=== PATIENT | male | born 1940 | race Caucasian/White ===

== ENCOUNTER → 2016-12-11 | Outpatient (CLI) | payer MEDICARE ==
--- NOTE | 2016-12-11 10:30 | PCVCIMAG ---
APPROVED REPORT Patient Location: Out-Patient Indications Stenosis Risk Factors Hypertension: Hyperlipidemia Doppler Spectral Velocity Analysis PSV / EDVPSV / EDV ECA (R) 135 / 9 cm/sECA (L) 109 / 7 cm/s dICA (R) 57 / 19 cm/sdICA (L) 61 / 19 cm/s Damion (R) 79 / 15 cm/smICA (L) 82 / 30 cm/s pICA (R) 48 / 14 cm/spICA (L) 50 / 13 cm/s Bulb (R) 48 / 10 cm/sBulb (L) 55 / 12 cm/s dCCA (R) 68 / 10 cm/sdCCA (L) 60 / 12 cm/s mCCA (R) 85 / 13 cm/smCCA (L) 85 / 13 cm/s Vert (R) 46 / 7 cm/sVert (L) 44 / 9 cm/s ICA/CCA 1.16ICA/CCA 1.37 Basic Measurements Blood Pressure: Pulses: Right Left RightLeft Brachial(Sitting) 132/05mcYx895/76mmHgTemporal Real Time B-Mode Imaging Vert. (R)AntegradeVert. (L)Antegrade Findings The right carotid bulb has mild plaque. The right proximal internal carotid artery shows no significant stenosis. The right common carotid artery shows no significant stenosis. The right external carotid artery shows no significant stenosis. The left carotid bulb has moderate calcified plaque. The left proximal internal carotid artery shows <40% stenosis. The left common carotid artery shows no significant stenosis. The left external carotid artery shows no significant stenosis. Conclusion 1. Right internal carotid artery plaquing 2. Left internal carotid artery stenosis (<40%) 3. Antegrade vertebral flow
--- NOTE | 2016-12-11 12:59 | PCVCIMAG ---
APPROVED REPORT Exam: Stress Echocardiogram Indication: CAD s/p CABG, Hypertension, Hyperlipidemia Patient Location: Echo lab Stress Nurse: Adriana Tate RN Status: routine HR: 85 bpm Rhythm: NSR Medical History Medical History: CAD s/p CABG Cardiac Risk Factors: HTN, Hyperlipidemia,CAD Previous Cardiac Procedures: CABG Pretest Chest Pain Characteristics: No chest pain Exercise History: Physically active Procedure The patient underwent an Exercise Stress Test using the William Protocol. Blood pressure, heart rate, and EKG were monitored. An Echocardiogram was performed by tube test technician in four stages in quad fashion. At peak stress, four selected images were obtained and placed side by side with resting images for comparison. Stress Test Details HR Resting HR: 85 bpmMax Heart Rate (APMHR): 144 bpm Max HR Achieved: 160 bpmTarget HR (85% APMHR): 122 bpm % of APMHR: 111 Recovery HR: 93 bpm HR response to stress: Normal HR response to stress BP Resting BP: 148/74 mmHg Max BP: 198/78 mmHg Recovery BP: 152/80 mmHg ECG Resting ECG: Sinus Rhythm Stress ECG: Sinus Rhythm, nonspecific ST-T abnormalities ST Change: Upsloping ST depression Maximum ST Deviation: 2.2 mm Arrhythmia: None Recovery ECG: Sinus Rhythm, NSSTT changes Recovery ST Change: Upsloping ST depression Recovery Arrhythmia: None Clinical Reason for Termination: Maximal effort, Dyspnea Stress Symptoms: None Exercise duration: 7 min 01 sec Highest Stage Achieved: Stage 3: 3.4 mph at 14% grade. Exercise capacity: 10.1 METs Overall Exercise Capacity for Age: Average Angina Score: None Stress ECG Conclusion The patient exercised according to the WILLIAM protocol for 7:01 mins, achieving a work level of Max. METS: 10.1 The resting heart rate of 78 bpm maggie to a maximal heart rate of 160 bpm. This value represents 111 The resting blood pressure of 148/74 mmHg, maggie to a maximum blood pressure of 198/80 The exercise test was stopped due to fatigueand dyspnea. Sullivan Treadmill Score is -4.0 which is Moderate risk. Pre-Stress Echo The resting Echocardiogram showed normal left ventricular contractility with an estimated Ejection Fraction of about 55%. Normal wall motion in all segments on baseline images. Post-Stress Echo The stress Echocardiogram showed normal left ventricular contractility with an estimated Ejection Fraction of about 70%. Normal augmentation of wall motion in all segments on post stress images. Conclusion Clinical Response: Non-ischemic Exercise Capacity: Average Stress ECG Response: Indeterminant Stress Echo Images: Non-ischemic No clinical, EKG or echocardiographic evidence for ischemia. ST changes seen are similar to changes in prior studies. No echocardiographic evidence for exercise induced ischemia. <Conclusion> No clinical, EKG or echocardiographic evidence for ischemia. ST changes seen are similar to changes in prior studies. No echocardiographic evidence for exercise induced ischemia.
== END | disposition home or self-care (01) ==
LOC: PCVCIMAG 09:52
PROVIDERS: ATTEND Internal Medicine Cardiovascular Disease
DX: I65.23 Occlusion and stenosis of bilateral carotid arteries (principal); I25.10 Atherosclerotic heart disease of native coronary artery without angina pectoris; I10 Essential (primary) hypertension; E78.5 Hyperlipidemia, unspecified; Z95.1 Presence of aortocoronary bypass graft
CPT/HCPCS: 93325; 93351; 93880

== ENCOUNTER → 2017-09-22 | Outpatient (CLI) | payer MEDICARE | END | disposition home or self-care (01) | LOC: PCVCCLINIC 11:37 | DX: I25.10 Atherosclerotic heart disease of native coronary artery without angina pectoris (principal); I10 Essential (primary) hypertension; E78.00 Pure hypercholesterolemia, unspecified; R94.31 Abnormal electrocardiogram [ECG] [EKG]; I65.29 Occlusion and stenosis of unspecified carotid artery; Z95.1 Presence of aortocoronary bypass graft; Z79.82 Long term (current) use of aspirin; Z79.899 Other long term (current) drug therapy | CPT/HCPCS: 80061; 93005; G0463 ==

== ENCOUNTER → 2018-06-14 | Outpatient (CLI) | payer MEDICARE ==
--- NOTE | 2018-06-14 15:04 | PCVCIMAG ---
APPROVED REPORT Study performed: 06/14/2018 13:36:30 Exam: Stress Echocardiogram Indication: CAD s/p CABG, Dyspnea , Hypertension, Hyperlipidemia Patient Location: Echo lab Stress Nurse: Sarah Paul RN Status: routine Ht: 6 ft 0 in HR: 93 bpm BP: 140/82 mmHg Rhythm: NSR Procedure The patient underwent an Exercise Stress Test using the William Protocol. Blood pressure, heart rate, and EKG were monitored. An Echocardiogram was performed by customer service technician in four stages in quad fashion. At peak stress, four selected images were obtained and placed side by side with resting images for comparison. Stress Test Details Stress Test: Exercise stress testing was performed using a William protocol. HR Resting HR: 93 bpmMax Heart Rate (APMHR): 142 bpm Max HR Achieved: 162 bpmTarget HR (85% APMHR): 120 bpm % of APMHR: 114 Recovery HR: 101 bpm HR response to stress: Normal HR response to stress BP Resting BP: 140/82 mmHg Max BP: 196/72 mmHg Recovery BP: 170/80 mmHg BP response to stress: Normal blood pressure response to stress. ECG Resting ECG: Sinus Rhythm Stress ECG: Sinus Rhythm ST Change: non-specific ST changes Arrhythmia: frequent PACs Recovery ECG: Sinus Rhythm Recovery ST Change: non-specific ST changes Recovery Arrhythmia: PACs Clinical Reason for Termination: Maximal effort Stress Symptoms: Dyspnea Exercise duration: 7 min 57 sec Highest Stage Achieved: Stage 3: 3.4 mph at 14% grade. Exercise capacity: 10.1 METs Overall Exercise Capacity for Age: Good Scale: Active Angina Score: None Pre-Stress Echo The resting Echocardiogram showed normal left ventricular contractility with an estimated Ejection Fraction of about 55%. Normal wall motion in all segments on baseline images. Post-Stress Echo The stress Echocardiogram showed normal left ventricular contractility with an estimated Ejection Fraction of about 65%. Normal augmentation of wall motion in all segments on post stress images. Clinical No clinical or ECG evidence for ischemia. Conclusion Clinical Response: Non-ischemic Exercise Capacity: Average Stress ECG Response: Non-ischemic Stress Echo Images: Non-ischemic The left ventricle is normal in size and wall thickness in both the rest and stress images. Other Information Study Quality: Adequate <Conclusion> The left ventricle is normal in size and wall thickness in both the rest and stress images.
== END | disposition home or self-care (01) ==
LOC: PCVCIMAG 13:38
PROVIDERS: ATTEND Internal Medicine Cardiovascular Disease
DX: I25.10 Atherosclerotic heart disease of native coronary artery without angina pectoris (principal); I10 Essential (primary) hypertension; E78.5 Hyperlipidemia, unspecified; R06.00 Dyspnea, unspecified; Z95.1 Presence of aortocoronary bypass graft
CPT/HCPCS: 36415; 80061; 93325; 93351

== ENCOUNTER → 2019-01-12 | Outpatient (CLI) | payer MEDICARE | END | disposition home or self-care (01) | LOC: PCVCCLINIC 13:20 | PROVIDERS: ATTEND Internal Medicine Cardiovascular Disease | DX: I25.10 Atherosclerotic heart disease of native coronary artery without angina pectoris (principal); E78.00 Pure hypercholesterolemia, unspecified; I48.0 Paroxysmal atrial fibrillation; I10 Essential (primary) hypertension; I65.23 Occlusion and stenosis of bilateral carotid arteries; Z79.82 Long term (current) use of aspirin; Z88.0 Allergy status to penicillin | CPT/HCPCS: 36415; 80061; 93005; G0463 ==